=== PATIENT | male | born 1950 | race Hispanic/Latino ===

== ENCOUNTER → 2017-09-14 | Outpatient (CLI) | payer MEDICARE ==
[~2017-09-14] MED LIST: ACET1TAB12 PO; ALBU8.5H8; LEVO50 PO; LEVO75TA10 PO; LOSA100T29 PO; ONDA8TAB11 PO; OXYC-586 PO; PANT40TA25 PO; PROC10TA13 PO; SODI1TAB4 PO; TAMS0.4C32 PO; TIOT4MIS3 IH
== END | disposition home or self-care (01) ==
LOC: RAH 10:23
PROVIDERS: ATTEND Internal Medicine Medical Oncology
DX: R22.1 Localized swelling, mass and lump, neck (principal)
CPT/HCPCS: 76536

== ENCOUNTER → 2017-09-22 | Outpatient (CLI) | payer MEDICARE | END | disposition home or self-care (01) | LOC: RAH 08:39 | PROVIDERS: ATTEND Otolaryngology Plastic Surgery within the Head & Neck | DX: C44.42 Squamous cell carcinoma of skin of scalp and neck (principal); I10 Essential (primary) hypertension; J44.9 Chronic obstructive pulmonary disease, unspecified; Z79.899 Other long term (current) drug therapy | CPT/HCPCS: 10022; 20206; 76942; 88184; 88185; 88305; 88341; 88342; A4215; 21550; 38505 ==

== ENCOUNTER 2017-12-16 11:07 | Inpatient (IN) | payer MEDICARE ==
[~2017-12-16] VITALS: Ht 157.5 cm; Wt 57.2 kg
[~2017-12-16 11:07] MED LIST changes: -ONDA8TAB11 PO; -OXYC-586 PO; -PROC10TA13 PO; -SODI1TAB4 PO; -TAMS0.4C32 PO
[2017-12-16 12:06] LABS: BASOPHILS % (AUTO) 0.7 % (0.0-5.0); EOSINOPHILS % (AUTO) 1.1 % (0.0-8.0); HEMATOCRIT 31.2 % (42-54); LYMPHOCYTES % (AUTO) 26.5 % (21.0-51.0); MEAN CORPUSCULAR VOLUME 85.7 fL (79-99); NEUTROPHILS % (AUTO) 61.7 % (40.0-77.0); PLATELET COUNT (AUTO) 61 K/uL (130-400); RED BLOOD CELL COUNT(AUTO) 3.64 MIL/uL (4.50-6.20); RED CELL DISTRIBUTION WIDTH 13.3 % (11.0-15.5); WHITE BLOOD COUNT (AUTO) 2.3 K/uL (4.8-10.8)
[2017-12-16 12:13] LABS: ALBUMIN 2.7 g/dL (3.5-5.0); BILIRUBIN,TOTAL 0.4 mg/dL (0.2-1.0); CREATININE 0.9 mg/dL (0.5-1.5); POTASSIUM 4.6 mmol/L (3.5-5.1)
[2017-12-16] MEDS ORDERED: ONDANSETRON HCL 4 MG/2 ML VIAL ONE (12:17)
[2017-12-16] MEDS ORDERED: SODIUM CHLORIDE 0.9% 1000ML 1,000 ML IV ONE ×3 (12:17→16:57)
[2017-12-16 13:10] LABS: LYMPHOCYTES % (MANUAL) 27 % (22-44); MAN.DIFF COMMENT-IMPRESSION MANUAL DIFFERENTIAL; MONOCYTES % (MANUAL) 9 % (2-9); SEGMENTED NEUTROPHILS % 64 % (40-70)
[2017-12-16 13:11] LABS: APPEARANCE,URINE Clear (CLEAR); BILIRUBIN,URINE Negative (NEGATIVE); COLOR,URINE Yellow (YELLOW); GLUCOSE, URINE (UA) Negative (NEGATIVE); KETONES,URINE Negative (NEGATIVE); LEUKOCYTE ESTERASE ,URINE Negative (NEGATIVE); NITRATE,URINE Negative (NEGATIVE); OCCULT BLOOD,URINE Negative (NEGATIVE); PH,URINE 8.5 (5.0-8.0); PROTEIN,URINE POS 1+ (NEGATIVE); UROBILINOGEN,URINE 0.2 mg/dL (0.2-1.0)
[2017-12-16 13:11] LABS: PLATELET MORPHOLOGY COMMENT DECREASED
[2017-12-16 13:16] LABS: BACTERIA,URINE Rare /HPF (None Seen); SQUAMOUS EPITHELIAL CELL,UR Rare /HPF (0-2); WBC,URINE 0-1 /HPF (0-1)
[2017-12-16 17:03] VITALS: BP 133/101
[2017-12-16] MEDS ORDERED: SODI1TAB4 PO (17:35)
[2017-12-16] MEDS ORDERED: OXYC-586 PO (17:35)
[2017-12-16] MEDS ORDERED: PROC10TA13 PO (17:35)
[2017-12-16] MEDS ORDERED: TAMS0.4C32 PO (17:35)
[2017-12-16] MEDS ORDERED: ONDA8TAB11 PO (17:35)
[2017-12-16] MEDS ORDERED: PHARMACY COMMUNICATION MISC SCH (18:30)
[2017-12-16 19:12] VITALS: BP 120/81
[2017-12-16 19:16] LABS: THYROID STIMULATING HORMONE 4.28 uIU/mL (0.36-3.74); URIC ACID 2.2 mg/dL (2.6-7.2)
[2017-12-16] MEDS: SODIUM CHLORIDE 1,000 MG TAB PO SCH (20:11)
[2017-12-17 00:09] VITALS: BP 114/73
[2017-12-17 03:43] VITALS: BP 100/59
[2017-12-17 04:01] LABS: HEMATOCRIT 29.5 % (42-54); MEAN CORPUSCULAR HEMOGLOBIN 30.9 pg (27.0-33.0); MEAN CORPUSCULAR HGB CONC 36.2 g/dL (32.0-36.0); MEAN CORPUSCULAR VOLUME 85.1 fL (79-99); PLATELET COUNT (AUTO) 79 K/uL (130-400); RED BLOOD CELL COUNT(AUTO) 3.46 MIL/uL (4.50-6.20); RED CELL DISTRIBUTION WIDTH 13.5 % (11.0-15.5); WHITE BLOOD COUNT (AUTO) 2.5 K/uL (4.8-10.8)
[2017-12-17 04:17] LABS: CREATININE 0.8 mg/dL (0.5-1.5); MAGNESIUM 1.4 mg/dL (1.80-2.40); POTASSIUM 4.5 mmol/L (3.5-5.1); THYROID STIMULATING HORMONE 4.77 uIU/mL (0.36-3.74)
[2017-12-17 04:19] LABS: LYMPHOCYTES % (MANUAL) 20 % (22-44); MAN.DIFF COMMENT-IMPRESSION MANUAL DIFFERENTIAL; MONOCYTES % (MANUAL) 20 % (2-9); PLATELET MORPHOLOGY COMMENT DECREASED; SEGMENTED NEUTROPHILS % 60 % (40-70)
[2017-12-17] MEDS ORDERED: MAGNESIUM 2GM PREMIX 50ML 50 ML IV ONE (05:21)
[2017-12-17] MEDS ORDERED: MAGNESIUM 2GM PREMIX 50ML 50 ML IV SCH (05:30)
[2017-12-17] MEDS: LEVOTHYROXINE 75 MCG TABLET PO SCH (05:31)
[2017-12-17 07:48] VITALS: BP 102/60
[2017-12-17] MEDS: LOSARTAN 100 MG TABLET PO SCH (08:05)
[2017-12-17] MEDS: TAMSULOSIN HCL 0.4 MG CAP.ER.24H PO SCH (08:05)
[2017-12-17] MEDS ORDERED: LACTULOSE 20 GM/30 ML UDCUP PO PRN (09:00)
[2017-12-17] MEDS ORDERED: NITROGLYCERIN 0.4 MG SL TAB SL PRN (09:00)
[2017-12-17] MEDS ORDERED: ACETAMINOPHEN-CODEINE 300/30MG TAB PO PRN ×2 (09:00)
[2017-12-17] MEDS ORDERED: MORPHINE SULFATE 2 MG/ML 1ML SYG IV PRN (09:00)
[2017-12-17] MEDS ORDERED: MORPHINE SULFATE 4 MG/1ML SYG IV PRN (09:00)
[2017-12-17] MEDS ORDERED: ACETAMINOPHEN 325 MG TAB PO PRN ×2 (09:00)
[2017-12-17] MEDS ORDERED: HYDRALAZINE HCL 20 MG/ML VIAL IV PRN (09:00)
[2017-12-17] MEDS ORDERED: MAG HYDROX/AL HYDROX/SIMETH ES 30 ML SUSP UDCUP PO PRN (09:00)
[2017-12-17] MEDS ORDERED: ONDANSETRON HCL 4 MG/2 ML VIAL IV PRN (09:00)
[2017-12-17] MEDS ORDERED: ONDANSETRON HCL MDV 20ML 2 MG/ML VIAL IVP PRN (09:00)
[2017-12-17] MEDS ORDERED: GUAIFENESIN-DM 200/20 MG 10 ML PO PRN (09:00)
[2017-12-17] MEDS ORDERED: OXYCODONE HCL 5 MG TAB PO PRN (09:00)
[2017-12-17] MEDS: SODIUM CHLORIDE 0.9% 1000ML 1,000 ML IV SCH (09:58)
[2017-12-17 11:08] VITALS: BP 102/65
[2017-12-17] MEDS: IPRATROPIUM/ALBUTEROL SULFATE 3 ML SOLUTION IH SCH ×3 (11:08→23:37)
[2017-12-17] MEDS: SODIUM CHLORIDE 1,000 MG TAB PO SCH ×2 (11:40→21:00)
[2017-12-17] MEDS: FAMOTIDINE 20MG TAB 20 MG TAB PO SCH ×2 (11:40→20:39)
[2017-12-17 16:02] VITALS: BP 98/60
[2017-12-17 19:30] VITALS: BP 91/48
[2017-12-17 20:38] LABS: MEAN CORPUSCULAR HEMOGLOBIN 30.3 pg (27.0-33.0); MEAN CORPUSCULAR HGB CONC 35.2 g/dL (32.0-36.0); MEAN CORPUSCULAR VOLUME 86.2 fL (79-99); NUCLEATED RED BLOOD CELLS 0.1 % (0.0-0.19); PLATELET COUNT (AUTO) 96 K/uL (130-400); RED BLOOD CELL COUNT(AUTO) 3.25 MIL/uL (4.50-6.20); RED CELL DISTRIBUTION WIDTH 13.3 % (11.0-15.5); WHITE BLOOD COUNT (AUTO) 2.3 K/uL (4.8-10.8)
[2017-12-17 20:51] LABS: INR 0.96 (0.85-1.15); PARTIAL THROMBOPLASTIN TIME 28.1 SEC (26.3-35.5); POTASSIUM 4.1 mmol/L (3.5-5.1); PROTHROMBIN TIME 10.1 SEC (9.6-11.6)
[2017-12-17 21:15] LABS: BASOPHILS % (MANUAL) 1 % (0-2); EOSINOPHILS % (MANUAL) 2 % (1-6); LYMPHOCYTES % (MANUAL) 19 % (22-44); MAN.DIFF COMMENT-IMPRESSION MANUAL DIFFERENTIAL; MONOCYTES % (MANUAL) 7 % (2-9); REACTIVE LYMPHOCYTES 1 % (0-0); SEGMENTED NEUTROPHILS % 70 % (40-70)
[2017-12-17 21:20] LABS: PLATELET MORPHOLOGY COMMENT LARGE PLTS PRESENT
[2017-12-18] VITALS (7 sets, daily range): BP systolic 115–155; BP diastolic 54–77
[2017-12-18] MEDS: SODIUM CHLORIDE 0.9% 1000ML 1,000 ML IV SCH (02:21)
[2017-12-18 03:54] LABS: HEMATOCRIT 29.8 % (42-54); MEAN CORPUSCULAR HEMOGLOBIN 30.5 pg (27.0-33.0); MEAN CORPUSCULAR HGB CONC 35.5 g/dL (32.0-36.0); MEAN CORPUSCULAR VOLUME 85.9 fL (79-99); PLATELET COUNT (AUTO) 110 K/uL (130-400); RED BLOOD CELL COUNT(AUTO) 3.47 MIL/uL (4.50-6.20); RED CELL DISTRIBUTION WIDTH 13.3 % (11.0-15.5); WHITE BLOOD COUNT (AUTO) 2.6 K/uL (4.8-10.8)
[2017-12-18 04:14] LABS: MAGNESIUM 2.7 mg/dL (1.80-2.40); POTASSIUM 4.4 mmol/L (3.5-5.1)
[2017-12-18] MEDS: IPRATROPIUM/ALBUTEROL SULFATE 3 ML SOLUTION IH SCH ×3 (06:13→19:06)
[2017-12-18] MEDS: LEVOTHYROXINE 75 MCG TABLET PO SCH (06:22)
[2017-12-18] MEDS: LOSARTAN 100 MG TABLET PO SCH (09:00)
[2017-12-18] MEDS: SODIUM CHLORIDE 1,000 MG TAB PO SCH (09:52)
[2017-12-18] MEDS: TAMSULOSIN HCL 0.4 MG CAP.ER.24H PO SCH (09:52)
[2017-12-18] MEDS: FAMOTIDINE 20MG TAB 20 MG TAB PO SCH ×2 (09:56→20:18)
[2017-12-18] MEDS: ACETYLCYSTEINE 20% 200MG/ML 4ML VIAL IH SCH (19:06)
[2017-12-19] MEDS: ACETYLCYSTEINE 20% 200MG/ML 4ML VIAL IH SCH ×2 (00:04→06:42)
[2017-12-19] MEDS: IPRATROPIUM/ALBUTEROL SULFATE 3 ML SOLUTION IH SCH ×2 (00:05→06:42)
[2017-12-19 03:55] VITALS: BP 100/63
[2017-12-19 04:25] LABS: HEMATOCRIT 29.5 % (42-54); MEAN CORPUSCULAR HEMOGLOBIN 31.4 pg (27.0-33.0); MEAN CORPUSCULAR HGB CONC 36.3 g/dL (32.0-36.0); MEAN CORPUSCULAR VOLUME 86.5 fL (79-99); PLATELET COUNT (AUTO) 123 K/uL (130-400); RED BLOOD CELL COUNT(AUTO) 3.41 MIL/uL (4.50-6.20); RED CELL DISTRIBUTION WIDTH 13.4 % (11.0-15.5); WHITE BLOOD COUNT (AUTO) 2.7 K/uL (4.8-10.8)
[2017-12-19 04:49] LABS: CREATININE 0.8 mg/dL (0.5-1.5); POTASSIUM 4.2 mmol/L (3.5-5.1)
[2017-12-19] MEDS: LEVOTHYROXINE 75 MCG TABLET PO SCH (05:53)
[2017-12-19 07:46] VITALS: BP 112/68
[2017-12-19] MEDS: TAMSULOSIN HCL 0.4 MG CAP.ER.24H PO SCH (08:14)
[2017-12-19] MEDS: LOSARTAN 100 MG TABLET PO SCH (08:14)
[2017-12-19] MEDS: FAMOTIDINE 20MG TAB 20 MG TAB PO SCH (08:14)
[2017-12-19] MEDS: SODIUM CHLORIDE 1,000 MG TAB PO SCH (08:15)
[2017-12-19] MEDS ORDERED: SODI1TAB4 PO (09:31)
== END 2017-12-19 10:30 | disposition home or self-care (01) | DRG 640 ==
LOC: EDH 11:07 → EDHIP 15:13 → 2AH 16:17
PROVIDERS: ADMIT Internal Medicine; ATTEND Internal Medicine
DX: E87.1 Hypo-osmolality and hyponatremia (principal); D61.811 Other drug-induced pancytopenia; E44.0 Moderate protein-calorie malnutrition; J96.10 Chronic respiratory failure, unspecified whether with hypoxia or hypercapnia; D69.6 Thrombocytopenia, unspecified; R13.10 Dysphagia, unspecified; Z99.81 Dependence on supplemental oxygen; C14.0 Malignant neoplasm of pharynx, unspecified; D64.9 Anemia, unspecified; D72.819 Decreased white blood cell count, unspecified; E03.9 Hypothyroidism, unspecified; E78.5 Hyperlipidemia, unspecified; I10 Essential (primary) hypertension; J44.9 Chronic obstructive pulmonary disease, unspecified; K12.1 Other forms of stomatitis; N40.0 Benign prostatic hyperplasia without lower urinary tract symptoms; Z68.23 Body mass index [BMI] 23.0-23.9, adult; Z91.040 Latex allergy status; Z87.891 Personal history of nicotine dependence; Z51.11 Encounter for antineoplastic chemotherapy; Z82.49 Family history of ischemic heart disease and other diseases of the circulatory system
CPT/HCPCS: 36415; 71045; 80048; 80053; 81001; 82533; 83735; 83930; 83935; 84295; 84300; 84443; 84550; 85025; 85027; 85610; 85730; 86850; 86900; 86901; 93005; 94640; 94664; 99291; J2405; J3475; J7030; J7608